=== PATIENT | male | born 1980 | race Caucasian/White ===

== ENCOUNTER 2016-04-30 02:11 | Emergency (ER) | payer OTHER ==
[2016-04-30] MEDS ORDERED: PENICILLIN G BENZATHINE 600,000 UNIT/ML SYRINGE IM STA (02:25)
[2016-04-30] MEDS ORDERED: DEXAMETHASONE 10 MG/ML VIAL PO STA (02:26)
[2016-04-30] MEDS ORDERED: PENICILLIN G BENZATHINE 600,000 UNIT/ML SYRINGE IM ONE (02:33)
[2016-04-30] MEDS ORDERED: DEXAMETHASONE 10 MG/ML VIAL ONE (02:36)
== END 2016-04-30 02:57 | disposition home or self-care (01) ==
DX: J02.0 Streptococcal pharyngitis (principal)